=== PATIENT | female | born 1940 | race Caucasian/White ===

== ENCOUNTER 2020-08-29 09:30 | Inpatient (IN) ==
[2020-08-29 10:39] LABS: Basophils # 0.1 K/mcL (0.0-0.2); Basophils % 0.5 %; Eosinophils # 0.9 K/mcL (0.0-0.6); Hematocrit 38.2 % (35.3-44.9); Hemoglobin 12.4 g/dL (11.5-15.4); Immature Granulocytes % 0.5 % (0-4); Lymphocytes # 1.3 K/mcL (0.6-4.6); Lymphocytes % 11.7 %; Mean Corpuscular HGB Conc 32.5 g/dL (31.6-35.5); Mean Corpuscular Hemoglobin 29.8 pg (28.0-33.3); Mean Corpuscular Volume 91.8 fL (83.0-100.0); Mean Platelet Volume 10.3 fL (9.4-12.4); Monocytes % 9.4 %; Neutrophils # 7.7 K/mcL (1.6-8.9); Platelet Count 216 K/mcL (140-400); Red Blood Count 4.16 M/mcL (3.82-4.97); Red Cell Distribution Width 13.3 % (11.5-14.5); Segmented Neutrophils % 69.9 %; White Blood Count 10.9 K/mcL (4.3-11.1)
[2020-08-29 10:48] LABS: INR 1.3; Prothrombin Time 14.8 Seconds (9.4-12.1)
[2020-08-29 10:51] LABS: Activated Partial Thrombo Time 28.6 Seconds (26.0-36.0)
[2020-08-29] MEDS ORDERED: Isovue-370 500 ML BOTTLE IVP ONE (11:00)
[2020-08-29] MEDS ORDERED: Aspirin 81 MG TAB.CHEW PO ONE (11:00)
[2020-08-29] MEDS ORDERED: Nitroglycerin 0.4 MG TAB.SUBL SL PRN (11:00)
[2020-08-29 11:02] LABS: BUN/Creatinine Ratio 18 (6-26); Blood Urea Nitrogen 12 mg/dL (8-23); Calcium 8.8 mg/dL (8.6-10.3); Carbon Dioxide 28 mEq/L (23-29); Chloride 103 mEq/L (98-107); Glucose 131 mg/dL (70-105); Osmolality,Calculated 288 (280-300); Potassium 3.7 mEq/L (3.5-5.1); Sodium 138 mEq/L (136-145); eGFR For African Americans > 60 (> 60); eGFR For Non-African Americans > 60 (> 60)
[2020-08-29 11:13] LABS: Troponin I 0.04 ng/mL (< 0.04)
[2020-08-29] MEDS ORDERED: Furosemide 40 MG/4 ML VIAL IVP ONE (11:23)
[2020-08-29] MEDS ORDERED: Ondansetron 4 MG/2 ML VIAL IVP PRN (13:01)
[2020-08-29 13:33] LABS: Adenovirus Not Detected (Not Detect); Bordetella Pertussis Not Detected (Not Detect); Chlamydophila pneumoniae Not Detected (Not Detect); Coronavirus 229E Not Detected (Not Detect); Coronavirus HKU1 Not Detected (Not Detect); Coronavirus NL63 Not Detected (Not Detect); Coronavirus OC43 Not Detected (Not Detect); Human Metapneumovirus Not Detected (Not Detect); Human Rhinovirus/Enterovirus Not Detected (Not Detect); Influenza A Subtype 2009 H1 Not Detected (Not Detect); Influenza B Not Detected (Not Detect); Mycoplasma pneumoniae Not Detected (Not Detect); Parainfluenza Virus 1 Not Detected (Not Detect); Parainfluenza Virus 2 Not Detected (Not Detect); Parainfluenza Virus 3 Not Detected (Not Detect); Parainfluenza Virus 4 Not Detected (Not Detect); Respiratory Syncytial Virus Not Detected (Not Detect); SARS-CoV-2 Not Detected (Not Detect)
[2020-08-29] MEDS ORDERED: Perflutren Lipid Microsphere 1.3 ML in 0.9 % Sodium Chloride 8.7 ML IVP PRN (14:41)
[2020-08-29 15:59] LABS: Estimated Average Glucose 148 mg/dl; Hemoglobin A1C 6.8 %
[2020-08-29] MEDS: *HR* OxyCODONE/APAP 7.5/325 TABLET PO PRN (17:32)
[2020-08-29] MEDS: Furosemide 40 MG/4 ML VIAL IVP SCH (18:49)
[2020-08-29] MEDS: Melatonin 3 MG TABLET PO PRN (20:16)
[2020-08-29] MEDS: QUEtiapine Fumarate 25 MG TABLET PO SCH (20:16)
[2020-08-30 02:53] LABS: Hemoglobin 13.4 g/dL (11.5-15.4); Mean Corpuscular HGB Conc 31.2 g/dL (31.6-35.5); Mean Corpuscular Hemoglobin 29.3 pg (28.0-33.3); Mean Corpuscular Volume 93.9 fL (83.0-100.0); Mean Platelet Volume 10.4 fL (9.4-12.4); Platelet Count 224 K/mcL (140-400); Red Blood Count 4.58 M/mcL (3.82-4.97); Red Cell Distribution Width 13.4 % (11.5-14.5)
[2020-08-30 03:21] LABS: BUN/Creatinine Ratio 17 (6-26); Blood Urea Nitrogen 15 mg/dL (8-23); Calcium 9.1 mg/dL (8.6-10.3); Carbon Dioxide 30 mEq/L (23-29); Chloride 99 mEq/L (98-107); Glucose 121 mg/dL (70-105); Magnesium 1.4 mg/dL (1.6-2.6); Osmolality,Calculated 288 (280-300); Potassium 3.8 mEq/L (3.5-5.1); Sodium 138 mEq/L (136-145); Troponin I 0.04 ng/mL (< 0.04); eGFR For African Americans > 60 (> 60); eGFR For Non-African Americans > 60 (> 60)
[2020-08-30] MEDS: *HR* Enoxaparin 40 MG/0.4 ML SYRINGE SQ SCH (05:13)
[2020-08-30] MEDS: Furosemide 40 MG/4 ML VIAL IVP SCH ×2 (09:17→16:35)
[2020-08-30] MEDS: *HR* OxyCODONE/APAP 7.5/325 TABLET PO PRN ×2 (11:59→16:34)
[2020-08-30] MEDS: Melatonin 3 MG TABLET PO PRN (19:59)
[2020-08-30] MEDS: QUEtiapine Fumarate 25 MG TABLET PO SCH (19:59)
[2020-08-31 01:44] LABS: Hematocrit 38.9 % (35.3-44.9); Hemoglobin 12.4 g/dL (11.5-15.4); Mean Corpuscular HGB Conc 31.9 g/dL (31.6-35.5); Mean Corpuscular Hemoglobin 29.7 pg (28.0-33.3); Mean Corpuscular Volume 93.3 fL (83.0-100.0); Mean Platelet Volume 10.1 fL (9.4-12.4); Platelet Count 234 K/mcL (140-400); Red Blood Count 4.17 M/mcL (3.82-4.97); Red Cell Distribution Width 13.2 % (11.5-14.5); White Blood Count 8.7 K/mcL (4.3-11.1)
[2020-08-31 01:44] LABS: VBG HCO3 32 mEq/L (21-27); VBG PCO2 56 mmHg (41-51); VBG PH 7.36 pH Units (7.32-7.42); VBG PO2 35 mmHg (25-50)
[2020-08-31 02:02] LABS: Calcium 8.7 mg/dL (8.6-10.3); Potassium 3.9 mEq/L (3.5-5.1)
[2020-08-31] MEDS: *HR* Enoxaparin 40 MG/0.4 ML SYRINGE SQ SCH (05:07)
[2020-08-31] MEDS: Aspirin Enteric Coated 81 MG Tablet PO SCH (07:39)
[2020-08-31] MEDS: *HR* OxyCODONE/APAP 7.5/325 TABLET PO PRN ×2 (07:40→16:07)
[2020-08-31] MEDS: Furosemide 40 MG/4 ML VIAL IVP SCH ×2 (07:40→16:28)
[2020-08-31] MEDS: QUEtiapine Fumarate 25 MG TABLET PO SCH (19:57)
[2020-08-31] MEDS: Melatonin 3 MG TABLET PO PRN (19:57)
[2020-09-01] MEDS: *HR* Enoxaparin 30 MG/0.3 ML SYRINGE SQ SCH (05:14)
[2020-09-01] MEDS: Aspirin Enteric Coated 81 MG Tablet PO SCH (07:36)
[2020-09-01] MEDS: Furosemide 40 MG/4 ML VIAL IVP SCH ×2 (07:36→17:08)
[2020-09-01] MEDS ORDERED: Ipratropium/Albuterol Neb 3 ML IH PRN (09:07)
[2020-09-01] MEDS: predniSONE 20 MG TABLET PO SCH (10:14)
[2020-09-01] MEDS: Azithromycin 500 MG in 0.9 % Sodium Chloride 250 ML IVPB SCH (10:14)
[2020-09-01] MEDS: *HR* OxyCODONE/APAP 7.5/325 TABLET PO PRN ×2 (10:17→14:58)
[2020-09-01 11:28] LABS: Hematocrit 38.2 % (35.3-44.9); Hemoglobin 12.3 g/dL (11.5-15.4); Mean Corpuscular HGB Conc 32.2 g/dL (31.6-35.5); Mean Corpuscular Hemoglobin 29.2 pg (28.0-33.3); Mean Corpuscular Volume 90.7 fL (83.0-100.0); Mean Platelet Volume 9.8 fL (9.4-12.4); Platelet Count 264 K/mcL (140-400); Red Blood Count 4.21 M/mcL (3.82-4.97); Red Cell Distribution Width 13.3 % (11.5-14.5); White Blood Count 10.1 K/mcL (4.3-11.1)
[2020-09-01 11:48] LABS: Alanine Aminotransferase 10 Units/L (7-52); Albumin 3.3 g/dL (3.5-5.7); Albumin/Globulin Ratio 0.9 (1.1-2.2); Alkaline Phosphatase 68 Units/L (34-104); Aspartate Amino Transferase 15 Units/L (13-39); BUN/Creatinine Ratio 24 (6-26); Bilirubin,Total 0.4 mg/dL (0.3-1.0); Blood Urea Nitrogen 21 mg/dL (8-23); Calcium 9.1 mg/dL (8.6-10.3); Carbon Dioxide 28 mEq/L (23-29); Chloride 101 mEq/L (98-107); Globulin 3.6 g/dL (2.4-3.5); Glucose 149 mg/dL (70-105); Osmolality,Calculated 292 (280-300); Potassium 4.3 mEq/L (3.5-5.1); Sodium 138 mEq/L (136-145); Total Protein 6.9 g/dL (6.4-8.9); eGFR For African Americans > 60 (> 60); eGFR For Non-African Americans > 60 (> 60)
[2020-09-01] MEDS: polyethylene glycoL 3350 17 GM POWD.PACK PO SCH (14:48)
[2020-09-01] MEDS: GuaiFENesin Liq 200 MG/10 ML UDC PO SCH ×2 (17:09→23:02)
[2020-09-01] MEDS: Melatonin 3 MG TABLET PO PRN (20:03)
[2020-09-01] MEDS: Acetaminophen 325 MG TABLET PO PRN (20:03)
[2020-09-01] MEDS: QUEtiapine Fumarate 25 MG TABLET PO SCH (20:03)
[2020-09-02] MEDS: GuaiFENesin Liq 200 MG/10 ML UDC PO SCH ×3 (05:49→17:50)
[2020-09-02] MEDS: *HR* Enoxaparin 30 MG/0.3 ML SYRINGE SQ SCH (05:50)
[2020-09-02] MEDS: polyethylene glycoL 3350 17 GM POWD.PACK PO SCH (08:16)
[2020-09-02] MEDS: Aspirin Enteric Coated 81 MG Tablet PO SCH (08:17)
[2020-09-02] MEDS: predniSONE 20 MG TABLET PO SCH (08:17)
[2020-09-02] MEDS ORDERED: Furosemide 20 MG TABLET PO SCH (09:00)
[2020-09-02] MEDS ORDERED: Azithromycin 250 MG TABLET PO SCH (10:30)
[2020-09-02] MEDS: Azithromycin 500 MG in 0.9 % Sodium Chloride 250 ML IVPB SCH (10:44)
[2020-09-02] MEDS ORDERED: Dextrose Gel 15 GM/37.5 ML TUBE PO PRN ×2 (12:00)
[2020-09-02] MEDS ORDERED: D5% in Water 1,000 ML IVC PRN (12:00)
[2020-09-02] MEDS ORDERED: *HR* Dextrose 50 % in Water (Vial) 50 ML VIAL IVP PRN (12:00)
[2020-09-02 15:01] VITALS: BP 150/54
[2020-09-02] MEDS ORDERED: Insulin LISPRO 300 UNITS/3 ML VIAL SUBQ SCH (16:30)
[2020-09-02] MEDS: Acetaminophen 325 MG TABLET PO PRN (16:40)
== END 2020-09-02 18:50 | disposition home health service (06) | DRG 292 ==
LOC: 3BNU 09:30 → EMEROOARM 09:30 → SUATTDRO 14:07 → 3BNU 14:28
PROVIDERS: ADMIT Internal Medicine; ATTEND Registered Nurse

== ENCOUNTER 2021-03-06 11:38 | Inpatient (IN) ==
[2021-03-06 12:23] LABS: Basophils # 0.1 K/mcL (0.0-0.2); Basophils % 0.8 %; Eosinophils # 1.1 K/mcL (0.0-0.6); Eosinophils % 7.6 %; Hematocrit 42.5 % (35.3-44.9); Hemoglobin 13.3 g/dL (11.5-15.4); Immature Granulocytes % 0.5 % (0-4); Lymphocytes # 1.4 K/mcL (0.6-4.6); Lymphocytes % 9.7 %; Mean Corpuscular HGB Conc 31.3 g/dL (31.6-35.5); Mean Corpuscular Hemoglobin 28.6 pg (28.0-33.3); Mean Corpuscular Volume 91.4 fL (83.0-100.0); Mean Platelet Volume 9.7 fL (9.4-12.4); Monocytes % 7.2 %; Neutrophils # 10.7 K/mcL (1.6-8.9); Platelet Count 425 K/mcL (140-400); Red Blood Count 4.65 M/mcL (3.82-4.97); Red Cell Distribution Width 15.4 % (11.5-14.5); Segmented Neutrophils % 74.2 %; White Blood Count 14.4 K/mcL (4.3-11.1)
[2021-03-06 12:31] LABS: INR 1.3
[2021-03-06 12:34] LABS: Activated Partial Thrombo Time 32.6 Seconds (26.0-36.0)
[2021-03-06 12:41] LABS: Alanine Aminotransferase 24 Units/L (7-52); Albumin 2.8 g/dL (3.5-5.7); Albumin/Globulin Ratio 0.8 (1.1-2.2); Alkaline Phosphatase 114 Units/L (34-104); Aspartate Amino Transferase 23 Units/L (13-39); BUN/Creatinine Ratio 14 (6-26); Bilirubin,Direct 0.1 mg/dL (0.0-0.2); Bilirubin,Indirect 0.5 mg/dL (0.0-1.0); Bilirubin,Total 0.6 mg/dL (0.3-1.0); Blood Urea Nitrogen 11 mg/dL (8-23); Calcium 8.2 mg/dL (8.6-10.3); Carbon Dioxide 30 mEq/L (23-29); Chloride 99 mEq/L (98-107); Globulin 3.4 g/dL (2.4-3.5); Glucose 123 mg/dL (70-105); Osmolality,Calculated 285 (280-300); Potassium 4.5 mEq/L (3.5-5.1); Sodium 137 mEq/L (136-145); Total Protein 6.2 g/dL (6.4-8.9); Troponin I 0.03 ng/mL (< 0.04); eGFR For African Americans > 60 (> 60); eGFR For Non-African Americans > 60 (> 60)
[2021-03-06] MEDS ORDERED: Isovue-370 500 ML BOTTLE IVP ONE (13:08)
[2021-03-06 13:13] LABS: Influenza A PCR Negative (Negative); Influenza B PCR Negative (Negative); Resp. Syncytial Virus PCR Negative (Negative)
[2021-03-06 13:14] LABS: SARS-CoV-2 by PCR (In House) Negative (Negative)
[2021-03-06] MEDS ORDERED: Furosemide 40 MG/4 ML VIAL IVP ONE (15:35)
[2021-03-06] MEDS ORDERED: Naloxone 0.4 MG/ML INJ IVP PRN (16:17)
[2021-03-06] MEDS ORDERED: Ondansetron 4 MG/2 ML VIAL IVP PRN (16:17)
[2021-03-06] MEDS: QUEtiapine Fumarate 25 MG TABLET PO SCH (21:16)
[2021-03-06] MEDS: Budesonide/Formoterol 80/4.5 1 PUFF INH IH SCH (22:14)
[2021-03-07 05:37] LABS: Basophils # 0.1 K/mcL (0.0-0.2); Basophils % 0.7 %; Eosinophils # 1.3 K/mcL (0.0-0.6); Eosinophils % 12.3 %; Hemoglobin 12.8 g/dL (11.5-15.4); Immature Granulocytes % 0.4 % (0-4); Lymphocytes # 1.3 K/mcL (0.6-4.6); Lymphocytes % 12.4 %; Mean Corpuscular HGB Conc 31.2 g/dL (31.6-35.5); Mean Corpuscular Hemoglobin 28.3 pg (28.0-33.3); Mean Corpuscular Volume 90.7 fL (83.0-100.0); Mean Platelet Volume 9.4 fL (9.4-12.4); Monocytes # 1.1 K/mcL (0.0-1.3); Monocytes % 10.9 %; Neutrophils # 6.5 K/mcL (1.6-8.9); Platelet Count 442 K/mcL (140-400); Red Blood Count 4.52 M/mcL (3.82-4.97); Red Cell Distribution Width 15.3 % (11.5-14.5); Segmented Neutrophils % 63.3 %; White Blood Count 10.2 K/mcL (4.3-11.1)
[2021-03-07 06:00] LABS: BUN/Creatinine Ratio 17 (6-26); Blood Urea Nitrogen 12 mg/dL (8-23); Calcium 8.4 mg/dL (8.6-10.3); Carbon Dioxide 34 mEq/L (23-29); Chloride 97 mEq/L (98-107); Glucose 105 mg/dL (70-105); Magnesium 1.4 mg/dL (1.6-2.6); Osmolality,Calculated 286 (280-300); Phosphorous 4.1 mg/dL (2.7-4.5); Potassium 3.9 mEq/L (3.5-5.1); Sodium 138 mEq/L (136-145); eGFR For African Americans > 60 (> 60); eGFR For Non-African Americans > 60 (> 60)
[2021-03-07] MEDS: Budesonide/Formoterol 80/4.5 1 PUFF INH IH SCH ×2 (08:00→20:14)
[2021-03-07] MEDS: Furosemide 40 MG/4 ML VIAL IVP SCH (10:57)
[2021-03-07] MEDS: Aspirin Enteric Coated 81 MG Tablet PO SCH (10:58)
[2021-03-07] MEDS: *HR* HYDROcodone/Acet 5/325 mg TABLET PO PRN (20:10)
[2021-03-07] MEDS: QUEtiapine Fumarate 25 MG TABLET PO SCH (20:10)
[2021-03-08 02:48] LABS: BUN/Creatinine Ratio 17 (6-26); Blood Urea Nitrogen 14 mg/dL (8-23); Calcium 8.3 mg/dL (8.6-10.3); Carbon Dioxide 34 mEq/L (23-29); Chloride 96 mEq/L (98-107); Glucose 181 mg/dL (70-105); Osmolality,Calculated 289 (280-300); Potassium 4.2 mEq/L (3.5-5.1); Sodium 137 mEq/L (136-145); eGFR For African Americans > 60 (> 60); eGFR For Non-African Americans > 60 (> 60)
[2021-03-08] MEDS: Budesonide/Formoterol 80/4.5 1 PUFF INH IH SCH ×2 (07:43→20:11)
[2021-03-08] MEDS: Aspirin Enteric Coated 81 MG Tablet PO SCH (08:54)
[2021-03-08] MEDS: Furosemide 40 MG/4 ML VIAL IVP SCH (08:54)
[2021-03-08] MEDS: *HR* HYDROcodone/Acet 5/325 mg TABLET PO PRN ×2 (12:34→20:01)
[2021-03-08] MEDS: QUEtiapine Fumarate 25 MG TABLET PO SCH (20:01)
[2021-03-09 06:46] LABS: BUN/Creatinine Ratio 18 (6-26); Blood Urea Nitrogen 14 mg/dL (8-23); Calcium 8.2 mg/dL (8.6-10.3); Carbon Dioxide 36 mEq/L (23-29); Chloride 97 mEq/L (98-107); Glucose 165 mg/dL (70-105); Osmolality,Calculated 294 (280-300); Potassium 3.5 mEq/L (3.5-5.1); Sodium 140 mEq/L (136-145); eGFR For African Americans > 60 (> 60); eGFR For Non-African Americans > 60 (> 60)
[2021-03-09] MEDS: Budesonide/Formoterol 80/4.5 1 PUFF INH IH SCH (08:03)
[2021-03-09] MEDS ORDERED: Furosemide 40 MG TABLET PO SCH (09:00)
[2021-03-09] MEDS: *HR* HYDROcodone/Acet 5/325 mg TABLET PO PRN (09:31)
[2021-03-09] MEDS: Aspirin Enteric Coated 81 MG Tablet PO SCH (09:31)
[2021-03-09 10:10] VITALS: BP 119/50; PULSE 72; TEMP 98.1; O2SAT 98
[2021-03-09] MEDS ORDERED: FLU Vac QV 21-22 (6Month+)/PF 0.5 ML SYRINGE IM ONE (12:09)
== END 2021-03-09 13:55 | disposition home health service (06) | DRG 291 ==
LOC: EMEROOARM 11:38 → 3ANU 11:38 → SUATTDRO 16:21 → 3ANU 18:07
PROVIDERS: ADMIT Family Medicine; ATTEND Family Medicine

== ENCOUNTER 2021-05-05 01:32 | Inpatient (IN) ==
[2021-05-05 02:49] LABS: Basophils # 0.1 K/mcL (0.0-0.2); Basophils % 0.9 %; Eosinophils # 1.2 K/mcL (0.0-0.6); Hematocrit 40.5 % (35.3-44.9); Hemoglobin 12.5 g/dL (11.5-15.4); Immature Granulocytes % 0.2 % (0-4); Lymphocytes # 1.5 K/mcL (0.6-4.6); Lymphocytes % 16.5 %; Mean Corpuscular HGB Conc 30.9 g/dL (31.6-35.5); Mean Corpuscular Hemoglobin 28.1 pg (28.0-33.3); Mean Platelet Volume 10.6 fL (9.4-12.4); Monocytes % 11.7 %; Neutrophils # 5.1 K/mcL (1.6-8.9); Platelet Count 228 K/mcL (140-400); Red Blood Count 4.45 M/mcL (3.82-4.97); Red Cell Distribution Width 16.3 % (11.5-14.5); Segmented Neutrophils % 57.7 %; White Blood Count 8.9 K/mcL (4.3-11.1)
[2021-05-05 03:07] LABS: Calcium 8.7 mg/dL (8.6-10.3); Potassium 4.6 mEq/L (3.5-5.1)
[2021-05-05 03:11] LABS: Troponin I 0.1 ng/mL (< 0.04)
[2021-05-05 04:31] LABS: Influenza A PCR Negative (Negative); Influenza B PCR Negative (Negative); Resp. Syncytial Virus PCR Negative (Negative); SARS-CoV-2 by PCR (In House) Negative (Negative)
[2021-05-05] MEDS ORDERED: Furosemide 40 MG/4 ML VIAL IVP ONE (04:38)
[2021-05-05] MEDS ORDERED: Naloxone 0.4 MG/ML INJ IVP PRN (05:34)
[2021-05-05] MEDS ORDERED: Melatonin 3 MG TABLET PO PRN (05:34)
[2021-05-05] MEDS ORDERED: Acetaminophen 325 MG TABLET PO PRN (06:00)
[2021-05-05] MEDS ORDERED: Perflutren Lipid Microsphere 1.3 ML in 0.9 % Sodium Chloride 8.7 ML IVP PRN (06:46)
[2021-05-05] MEDS: Budesonide/Formoterol 160/4.5 1 PUFF INH IH SCH ×2 (07:38→19:59)
[2021-05-05] MEDS: Ipratropium/Albuterol Neb 3 ML IH SCH ×5 (07:38→23:34)
[2021-05-05] MEDS: Insulin LISPRO 300 UNITS/3 ML VIAL SUBQ SCH ×3 (07:41→17:47)
[2021-05-05 08:46] LABS: Troponin I 0.09 ng/mL (< 0.04)
[2021-05-05] MEDS ORDERED: Furosemide 20 MG/2 ML VIAL IVP SCH (09:00)
[2021-05-05 09:07] LABS: Thyroid Stimulating Hormone < 0.010 mcIU/mL (0.340-5.600)
[2021-05-05] MEDS: carvediloL 6.25 MG TABLET PO SCH ×2 (09:44→17:47)
[2021-05-05] MEDS: predniSONE 20 MG TABLET PO SCH (09:45)
[2021-05-05] MEDS: Aspirin Enteric Coated 81 MG Tablet PO SCH (09:45)
[2021-05-05] MEDS: cephALEXin 500 MG CAPSULE PO SCH ×4 (09:45→20:33)
[2021-05-05] MEDS: Lactobacillus 1 EACH CAP.SPRINK PO SCH ×2 (09:45→20:32)
[2021-05-05] MEDS: Chlorhexidine Rinse 15 ML MOUTHWASH MM SCH ×2 (09:45→20:33)
[2021-05-05 10:58] LABS: Estimated Average Glucose 151 mg/dl; Hemoglobin A1C 6.9 %
[2021-05-05 11:27] LABS: Triiodothyronine (T3) Total 99 ng/dL (87-178)
[2021-05-05] MEDS: *HR* Heparin 5,000 UNIT/ML VIAL SQ SCH ×2 (15:38→20:33)
[2021-05-05] MEDS: QUEtiapine Fumarate 25 MG TABLET PO SCH (20:32)
[2021-05-05] MEDS: Furosemide 20 MG/2 ML VIAL IVP SCH (20:46)
[2021-05-06] MEDS: Ipratropium/Albuterol Neb 3 ML IH SCH ×6 (03:42→23:22)
[2021-05-06] MEDS: *HR* Heparin 5,000 UNIT/ML VIAL SQ SCH ×3 (05:26→21:21)
[2021-05-06 07:02] LABS: BUN/Creatinine Ratio 22 (6-26); Blood Urea Nitrogen 22 mg/dL (8-23); Calcium 8.9 mg/dL (8.6-10.3); Carbon Dioxide 30 mEq/L (23-29); Chloride 96 mEq/L (98-107); Glucose 118 mg/dL (70-105); Magnesium 1.6 mg/dL (1.6-2.6); Osmolality,Calculated 284 (280-300); Potassium 4.3 mEq/L (3.5-5.1); Sodium 135 mEq/L (136-145); eGFR For African Americans > 60 (> 60); eGFR For Non-African Americans 53 (> 60)
[2021-05-06] MEDS: Insulin LISPRO 300 UNITS/3 ML VIAL SUBQ SCH ×3 (07:29→16:46)
[2021-05-06] MEDS: carvediloL 6.25 MG TABLET PO SCH ×2 (07:30→16:45)
[2021-05-06] MEDS: Budesonide/Formoterol 160/4.5 1 PUFF INH IH SCH ×2 (07:34→19:46)
[2021-05-06] MEDS: predniSONE 20 MG TABLET PO SCH (08:53)
[2021-05-06] MEDS: Furosemide 20 MG/2 ML VIAL IVP SCH (08:53)
[2021-05-06] MEDS: cephALEXin 500 MG CAPSULE PO SCH ×4 (08:53→21:21)
[2021-05-06] MEDS: Aspirin Enteric Coated 81 MG Tablet PO SCH (08:53)
[2021-05-06] MEDS: Lactobacillus 1 EACH CAP.SPRINK PO SCH ×2 (08:53→21:21)
[2021-05-06] MEDS: Chlorhexidine Rinse 15 ML MOUTHWASH MM SCH (08:53)
[2021-05-06] MEDS: *HR* OxyCODONE/APAP 7.5/325 TABLET PO PRN ×2 (12:47→16:52)
[2021-05-06] MEDS ORDERED: Azithromycin 250 MG TABLET PO ONE (13:18)
[2021-05-06] MEDS: MethylPREDNISolone 40 MG/ML VIAL IVP SCH (14:27)
[2021-05-06] MEDS: Artificial Tears SOLN 15 ML BOTTLE BOTH EYES PRN (16:45)
[2021-05-06] MEDS ORDERED: Isovue-370 500 ML BOTTLE IVP ONE (18:46)
[2021-05-06] MEDS ORDERED: Furosemide 40 MG/4 ML VIAL IVP ONE (20:00)
[2021-05-06] MEDS: QUEtiapine Fumarate 25 MG TABLET PO SCH (21:21)
[2021-05-07] MEDS: Ipratropium/Albuterol Neb 3 ML IH SCH ×6 (04:18→23:07)
[2021-05-07] MEDS: Insulin LISPRO 300 UNITS/3 ML VIAL SUBQ SCH ×3 (07:45→16:23)
[2021-05-07] MEDS: Budesonide/Formoterol 160/4.5 1 PUFF INH IH SCH ×2 (07:45→19:46)
[2021-05-07] MEDS: MethylPREDNISolone 40 MG/ML VIAL IVP SCH (07:45)
[2021-05-07] MEDS: *HR* Heparin 5,000 UNIT/ML VIAL SQ SCH ×3 (07:47→20:19)
[2021-05-07] MEDS: *HR* OxyCODONE/APAP 7.5/325 TABLET PO PRN ×3 (07:47→23:54)
[2021-05-07] MEDS: carvediloL 6.25 MG TABLET PO SCH ×2 (07:48→16:23)
[2021-05-07] MEDS: cephALEXin 500 MG CAPSULE PO SCH ×2 (07:48→20:17)
[2021-05-07] MEDS: Lactobacillus 1 EACH CAP.SPRINK PO SCH ×2 (07:48→20:17)
[2021-05-07] MEDS: Aspirin Enteric Coated 81 MG Tablet PO SCH (07:50)
[2021-05-07 07:52] LABS: Calcium 9.5 mg/dL (8.6-10.3); Magnesium 1.8 mg/dL (1.6-2.6); Potassium 4.2 mEq/L (3.5-5.1)
[2021-05-07] MEDS ORDERED: Furosemide 20 MG/2 ML VIAL IVP SCH (09:00)
[2021-05-07] MEDS: Azithromycin 250 MG TABLET PO SCH (13:29)
[2021-05-07] MEDS: QUEtiapine Fumarate 25 MG TABLET PO SCH (20:17)
[2021-05-07] MEDS: Artificial Tears SOLN 15 ML BOTTLE BOTH EYES PRN (20:20)
[2021-05-08 01:44] LABS: Calcium 9.1 mg/dL (8.6-10.3); Potassium 4.2 mEq/L (3.5-5.1)
[2021-05-08] MEDS: Ipratropium/Albuterol Neb 3 ML IH SCH ×3 (03:33→11:24)
[2021-05-08] MEDS: *HR* Heparin 5,000 UNIT/ML VIAL SQ SCH (05:48)
[2021-05-08] MEDS: Budesonide/Formoterol 160/4.5 1 PUFF INH IH SCH (07:17)
[2021-05-08] MEDS: cephALEXin 500 MG CAPSULE PO SCH (08:00)
[2021-05-08] MEDS: Aspirin Enteric Coated 81 MG Tablet PO SCH (08:00)
[2021-05-08] MEDS: Lactobacillus 1 EACH CAP.SPRINK PO SCH (08:00)
[2021-05-08] MEDS: carvediloL 6.25 MG TABLET PO SCH (08:00)
[2021-05-08] MEDS: *HR* OxyCODONE/APAP 7.5/325 TABLET PO PRN (08:00)
[2021-05-08] MEDS: Insulin LISPRO 300 UNITS/3 ML VIAL SUBQ SCH ×2 (08:01→11:34)
[2021-05-08] MEDS: MethylPREDNISolone 40 MG/ML VIAL IVP SCH (08:01)
[2021-05-08 10:24] VITALS: BP 118/62; PULSE 61; TEMP 98.3; O2SAT 99
[2021-05-08] MEDS: Azithromycin 250 MG TABLET PO SCH (11:34)
== END 2021-05-08 13:25 | disposition home or self-care (01) | DRG 280 ==
LOC: 2ANU 01:32 → EMEROOARM 01:32 → SUATTDRO 05:36 → 2ANU 06:30
PROVIDERS: ADMIT Internal Medicine; ATTEND Internal Medicine